=== PATIENT | female | born 1930 | race African-American/Black ===

== ENCOUNTER 2017-01-09 16:49 | Emergency (ER) | payer MEDICARE, BC ==
[2017-01-09 16:04] LABS: BASOPHILS 0.2 %; BASOPHILS ABSOLUTE 0.02 10/3/uL (0.0-0.16); EOSINOPHILS 1.7 %; EOSINOPHILS ABSOLUTE 0.17 10/3/uL (0.0-0.53); ER CBC TAT 0 Hrs 05 Mins; HEMOGLOBIN 9.7 g/dL (12.0-16.0); IMMATURE GRANULOCYTES 0.2 %; IMMATURE GRANULOCYTES ABSOLUTE 0.02 10/3/uL (0.0-0.11); LYMPHOCYTES 26.1 %; LYMPHOCYTES ABSOLUTE 2.55 10/3/uL (0.67-4.30); MEAN CORPUS HGB CONC 32.8 g/dL (32.0-36.0); MEAN CORPUSCULAR HEMOGLOB 30.3 pg (26.0-34.0); MEAN CORPUSCULAR VOLUME 92.5 fL (80-100); MEAN PLATELET VOLUME 8.9 fL (9.2-13.0); MONOCYTES 11.3 %; NEUTROPHILS 60.5 %; RBC DISTRIBUTION WIDTH 14.1 % (12.0-16.0); WHITE BLOOD CELLS 9.8 10/3/uL (4.5-10.5)
[2017-01-09 16:08] LABS: HEMATOCRIT 29.6 % (36.0-48.0); MANUAL DIFF NO %; PLATELET COUNT 171 10/3/uL (150-400)
[2017-01-09 16:21] LABS: A/G RATIO 0.7 (0.7-1.9); ALBUMIN 2.6 G/DL (3.5-5.0); CALCIUM, SERUM 9.2 MG/DL (8.5-10.4); CHLORIDE, SERUM 107 MMOL/L (96-112); CO2 (CARBON DIOXIDE) 31 MMOL/L (24-34); GFR AFRICAN AMERICAN 68 ML/MIN (>=60); GFR NON AFRICAN AMERICAN 59 ML/MIN (>=60); GLOBULIN 3.8 G/DL (2.5-4.1); GLUCOSE, SERUM 99 MG/DL (60-99); POTASSIUM, SERUM 3.5 MMOL/L (3.5-5.3); SGOT(AST) 14 U/L (5-40); SGPT(ALT) 12 U/L (5-65); SODIUM, SERUM 141 MMOL/L (135-148); TOTAL BILIRUBIN 0.5 MG/DL (0-1.2); TOTAL PROTEIN 6.4 G/DL (6.0-8.5)
[2017-01-09 16:23] LABS: ALKALINE PHOSPHATASE 74 U/L (45-117); BUN (BLOOD UREA NITROGEN) 10 MG/DL (6-23)
[~2017-01-09 16:49] MED LIST: ABATACEPT IV; FLEX PO; KLOR-CON 1010 MEQ PO; L20 PO; L40 PO; LOP50 PO; LOTRIMIN AF12 TOP; NORCO1 TA1 PO; ORENCIA INFUSION IV; ORENCIA250 MG IV; PEP20 PO; PLAQ200B PO; TEARS NATURA OPH; VITAMIN B-122500 MCG SL; VITAMIN D31000 UNIT PO
== END 2017-01-09 17:54 | disposition home or self-care (01) ==
LOC: ER 16:49
PROVIDERS: Emergency Medicine
DX: I89.0 Lymphedema, not elsewhere classified (principal); I10 Essential (primary) hypertension; M19.90 Unspecified osteoarthritis, unspecified site; Z98.890 Other specified postprocedural states; Z88.2 Allergy status to sulfonamides; Z88.6 Allergy status to analgesic agent; Z88.8 Allergy status to other drugs, medicaments and biological substances; Z79.899 Other long term (current) drug therapy
CPT/HCPCS: 80053; 85025; 99285; A9270-GY